=== PATIENT | female | born 1995 | race Caucasian/White ===

== ENCOUNTER 2019-07-22 09:43 | Emergency (ER) | payer MEDICAID ==
--- NOTE | 2019-07-22 11:17 | UC ---
Abdominal Pain Female HPI - HPI Summary HPI Summary: Pt presents with c/o sudden onset right upper and epigastric pain that began 3- 4 days ago and is worsening each day. Pt states she "only eats fried food" and states that she has significant worse pain when she does eat. Pt reports that her sister had her gallbladder out at age ~26. Pt has not eaten this morning. Pt states that she feels bloated and "gassy". Pt states she has chronic "heart burn" - History of Current Complaint Chief Complaint: UCAbdominalPain Stated Complaint: ABD PAIN Time Seen by Provider: 07/22/19 10:40 Hx Obtained From: Patient Hx Last Menstrual Period: Depo-Provera ?: No Onset/Duration: Sudden Onset, Lasting Days, Still Present Timing: Constant Severity Initially: Mild Severity Currently: Moderate Pain Intensity: 4 Pain Scale Used: 0-10 Numeric Location: Epigastric Radiates: Yes Radiates to: Flank Character: Colicy, Cramping, Dull Aggravating Factor(s): Food Alleviating Factor(s): NPO Associated Signs and Symptoms: Positive: Decreased Appetite - Risk Factors Ectopic Risk Factor: Negative Ovarian Torsion Risk Factor: Reproductive Age Allergies/Adverse Reactions: Allergies Allergy/AdvReac Type Severity Reaction Status Date / Time No Known Allergies Allergy Verified 07/22/19 10:24 Home Medications: Home Medications Calcium Carbonate CHEW TAB* [Tums*] 1,000 mg PO Q2H PRN 07/22/19 [History Confirmed 07/22/19] Ibuprofen TAB* [Advil TAB*] 800 mg PO Q8H PRN 07/22/19 [History Confirmed ] medroxyPROGESTERone ACETATE* [DEPO-Provera] 150 mg IM Q90D 07/22/19 [History Confirmed 07/22/19] PMH/Surg Hx/FS Hx/Imm Hx Previously Healthy: Yes - Surgical History Surgical History: Yes Surgery Procedure, Year, and Place: T&A, ~2001, [place] - Family History Known Family History: Positive: Cardiac Disease - Social History Occupation: Employed Full-time Lives: With Family Alcohol Use: Rare Substance Use Type: Marijuana Substance Use Comment - Amount & Last Used: Occasionally Smoking Status (MU): Heavy Every Day Tobacco Smoker Type: Cigarettes Amount Used/How Often: 1/2 PPD Length of Time of Smoking/Using Tobacco: Since Age 17 Have You Smoked in the Last Year: Yes - Immunization History Vaccination Up to Date: Yes Review of Systems All Other Systems Reviewed And Are Negative: Yes Constitutional: Positive: Negative Skin: Positive: Negative Eyes: Positive: Negative ENT: Positive: Negative Respiratory: Positive: Negative Cardiovascular: Positive: Negative Gastrointestinal: Positive: Abdominal Pain Genitourinary: Positive: Negative Motor: Positive: Negative Neurovascular: Positive: Negative Musculoskeletal: Positive: Negative Neurological: Positive: Negative Psychological: Positive: Negative Is Patient Immunocompromised?: No Physical Exam Triage Information Reviewed: Yes Appearance: Pain Distress Vital Signs: Initial Vital Signs Temp 98.9 F 07/22/19 10:21 Pulse 88 07/22/19 10:21 Resp 16 07/22/19 10:21 BP 118/70 07/22/19 10:21 Pulse Ox 100 07/22/19 10:21 Vital Signs Reviewed: Yes Eye Exam: Normal ENT Exam: Normal ENT: Positive: Hearing grossly normal Dental Exam: Normal Neck exam: Normal Respiratory: Positive: Normal breath sounds Cardiovascular Exam: Normal Abdomen Description: Positive: Other: - epigastric and RUQ discomfort with PE Bowel Sounds: Positive: Hypoactive Musculoskeletal Exam: Normal Neurological Exam: Normal Psychological Exam: Normal Skin Exam: Normal Abd Pain Female Course/Dx - Course Course Of Treatment: I discussed my concerns and recommendation with pt and pt verbalized understanding and agreed to plan of care. - Differential Dx/Diagnosis Differential Diagnosis: Gall Bladder Disease, Pancreatitis, Urinary Tract Infection, Other - h. Pylori ucler Provider Diagnosis: Epigastric pain Discharge ED - Sign-Out/Discharge Documenting (check all that apply): Patient Departure All imaging exams completed and their final reports reviewed: No Studies - Discharge Plan Condition: Stable Disposition: HOME-RECOMMEND TO ED Patient Education Materials: Acute Abdominal Pain (ED) Referrals: Wilfrido Alaniz MD [Primary Care Provider] - If Needed - Billing Disposition and Condition Condition: STABLE Disposition: Home-Recommend to ED
== END 2019-07-22 11:05 | disposition home health service (06) ==
LOC: UCCORT 09:43
DX: R10.13 Epigastric pain (principal); F17.210 Nicotine dependence, cigarettes, uncomplicated
CPT/HCPCS: 81003; 99202; G0463

== ENCOUNTER 2019-10-07 10:28 | Emergency (ER) | payer BC, MEDICAID ==
[2019-10-07 11:47] VITALS: BP 113/73
--- NOTE | 2019-10-07 11:56 | UC ---
Throat Pain/Nasal Ab HPI - HPI Summary HPI Summary: 24yo female presenting with sore throat, "swollen lymph nodes," muscle aches, and fatigue since yesterday. Notes chills but denies fevers. Notes "cough on and off." Decreased appetite. 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 - History of Current Complaint Chief Complaint: UCRespiratory Stated Complaint: ST Hx Obtained From: Patient Hx Last Menstrual Period: Uses depo , does not have reg periods Pain Intensity: 6 Pain Scale Used: 0-10 Numeric - Allergies/Home Medications Allergies/Adverse Reactions: Allergies Allergy/AdvReac Type Severity Reaction Status Date / Time enviromental Allergy Unknown Unknown Uncoded 10/07/19 11:37 Reaction Details Home Medications: Home Medications Ibuprofen TAB* [Advil TAB*] 800 mg PO Q8H PRN 07/22/19 [History Confirmed ] medroxyPROGESTERone ACETATE* [DEPO-Provera] 150 mg IM Q90D 07/22/19 [History Confirmed 10/07/19] Cephalexin CAP* [Keflex CAP*] 500 mg PO TID 10/07/19 [History Confirmed 10/07/19 ] PMH/Surg Hx/FS Hx/Imm Hx Previously Healthy: Yes - Surgical History Surgical History: Yes Surgery Procedure, Year, and Place: T&A, ~2001, [place] - Family History Known Family History: Positive: Cardiac Disease - Social History Alcohol Use: Occasionally Substance Use Type: Marijuana Substance Use Comment - Amount & Last Used: Occasionally Smoking Status (MU): Heavy Every Day Tobacco Smoker Type: Cigarettes Amount Used/How Often: 1/2 PPD Length of Time of Smoking/Using Tobacco: Since Age 17 Have You Smoked in the Last Year: Yes Household Exposure Type: Cigarettes - Immunization History Vaccination Up to Date: Yes Review of Systems All Other Systems Reviewed And Are Negative: Yes Constitutional: Positive: Chills, Fatigue. Negative: Fever ENT: Positive: Sore Throat Respiratory: Positive: Cough. Negative: Shortness Of Breath Cardiovascular: Positive: Negative Gastrointestinal: Positive: Negative Musculoskeletal: Positive: Myalgia Neurological/Mental Status: Positive: Negative Physical Exam - Summary Physical Exam Summary: Vital Signs Reviewed: Yes A+Ox3, no distress Eyes: Conjunctiva Clear ENT: Hearing grossly normal, TM x 2 clear, moist, uvula midline, no exudate, + pharyngeal erythema, no tonsillar swelling Neck: Positive: Supple, +tonsillar node enlargement Respiratory: Positive: No respiratory distress, No accessory muscle use + CTA throughout no w/r Cardiovascular: RRR nl s1, s2 no m/r Musculoskeletal Exam: COBURN x 4 without difficulty Neurological: Positive: Alert Psychological: Positive: age appropriate behavior Skin: Positive: no rash, no ecchymosis Vital Signs: Initial Vital Signs Temp 98.1 F 10/07/19 11:39 Pulse 99 10/07/19 11:39 Resp 20 10/07/19 11:39 BP 113/73 10/07/19 11:39 Pulse Ox 100 10/07/19 11:39 Throat Pain/Nasal Course/Dx - Course Course Of Treatment: Negative rapid flu and strep tests. Discussed viral illness with patient and flu like symptoms. I offered tamiflu to the patient, based on symptoms and working in health care setting. Patient declined treatment with tamiflu and states she will "do at home treatment." Educated on symptomatic treatment and instructed to follow up with pcp if symptoms persist. Patient voiced understanding and agreed with treatment plan. - Differential Dx/Diagnosis Differential Diagnosis/HQI/PQRI: Influenza, Pharyngitis, Sinusitis, URI Provider Diagnosis: Flu-like symptoms Discharge ED - Sign-Out/Discharge Documenting (check all that apply): Patient Departure All imaging exams completed and their final reports reviewed: No Studies - Discharge Plan Condition: Stable Disposition: HOME Patient Education Materials: Viral Syndrome (ED) Referrals: Care [facility] [Outside] - If Needed Additional Instructions: Your rapid flu and strep tests are negative today. Your symptoms are likely caused by a virus and should resolve without treatment. You may continue to take over the counter cough and cold medications for your cold symptoms. You may take ibuprofen as directed for pain relief. Get plenty of rest and increase your fluid intake. Follow up with your primary care provider if your symptoms worsen or do not resolve within 7-10 days. - Billing Disposition and Condition Condition: STABLE Disposition: Home - Attestation Statements Provider Attestation: This patient was not seen by me. I was available for consult. Chart reviewed. [email or web address]
[2019-10-07 12:52] LABS: Influenza A Molecular Negative (Negative); Influenza B Molecular Negative (Negative)
== END 2019-10-07 13:07 | disposition home or self-care (01) ==
LOC: UCCORT 10:28
DX: J02.9 Acute pharyngitis, unspecified (principal); R53.83 Other fatigue; R05 Cough; M79.10 Myalgia, unspecified site; F17.210 Nicotine dependence, cigarettes, uncomplicated; Z91.09 Other allergy status, other than to drugs and biological substances
CPT/HCPCS: 87651; 99211; G0463